=== PATIENT | female | born 1985 | race Hispanic/Latino ===

== ENCOUNTER 2022-11-18 10:29 | Emergency (ER) | payer OTHER, SELFPAY ==
--- NOTE | ~2022-11-18 | XR_ITS ---
EXAMINATION: XR chest 2V DATE: 11/18/2022 11:39 INDICATION: Chest pain. Shortness of breath. TECHNIQUE: Frontal and lateral views of the chest were obtained. COMPARISON: None. FINDINGS: The chest demonstrates clear lungs without pneumonia, pleural effusion, or pneumothorax. Th e heart size is normal. Breast implants are noted. IMPRESSION: 1. No acute cardiopulmonary disease. Reviewed, dictated and finalized at location A.
--- NOTE | 2022-11-18 10:49 | ECG_ITS ---
Measurements Intervals [place] Rate: 100 P: 84 DC: 150 QRS: 88 QRSD: 87 T: 14 QT: 321 QTc: 416 Interpretive Statements SINUS TACHYCARDIA NONSPECIFIC T-WAVE ABNORMALITY ABNORMAL ECG Electronically Signed On 11-18-2022 11:57:26 CDT by Henry Daniel M.D.
[2022-11-18 10:55] VITALS: BP 115/66; PULSE 101; RESP 17; TEMP 36.8; O2SAT 100
[2022-11-18 11:11] LABS: Basophils Percent Auto 0.3 % (0.2-1.2); Eosinophils Absolute Auto 0.1 K/mm3 (0-0.3); Eosinophils Percent Auto 1.5 % (0-4.4); Hematocrit 37.8 % (37.0-47.0); Hemoglobin 12.2 g/dL (12.0-15.0); Immature Granulocyte Absolute 0.05 K/mm3 (0.00-0.031); Immature Granulocyte Percent A 0.5 % (0-0.5); Lymphocytes Absolute Auto 1.21 K/mm3 (0.9-3.2); Lymphocytes Percent Auto 12.7 % (18.3-44.2); Mean Corpuscular HGB Conc 32.3 g/dl (32-36); Mean Corpuscular Hemoglobin 26.7 pg (26-34); Mean Corpuscular Volume 82.7 fl (80-100); Mean Platelet Volume 10.2 fl (7.4-10.4); Monocytes Percent Auto 10.1 % (2.6-8.5); Neutrophils Absolute Auto 7.2 K/mm3 (1.3-6.7); Neutrophils Percent Auto 74.9 % (45.5-73.1); Platelet Count Result 236 k/mm3 (150-375); Red Blood Count 4.57 M/mm3 (4.2-5.4); Red Cell Distribution Width 13.3 % (11.5-14.5); White Blood Count 9.6 K/mm3 (4.5-10.0)
[2022-11-18 11:20] LABS: INR 1.1; Prothrombin Time 13.7 Seconds (11.1-14.7)
[2022-11-18 11:29] LABS: Alanine Aminotransferase 25 U/L (6-35); Albumin Level 4.1 g/dL (3.5-5.1); Alkaline Phosphatase 68 U/L (38-126); Anion Gap 3 mmol/L (8-16); Aspartate Amino Transferase 25 U/L (14-36); Bilirubin,Total 0.6 mg/dL (0.2-1.3); Blood Urea Nitrogen 10 mg/dL (7-17); Calcium 8.8 mg/dL (8.4-10.2); Carbon Dioxide 32 mmol/L (22-30); Chloride 104 mmol/L (98-107); Estimated CRCL calculation 83 ml/min; Estimated Glomerular Filt Rate > 60; Glucose 99 mg/dL (65-110); Lipase 108 U/L (23-300); Potassium 3.5 mmol/L (3.4-5.0); Sodium 139 mmol/L (137-145)
[2022-11-18 11:40] LABS: Troponin I < 0.012 ng/mL (0.000-0.034)
[2022-11-18 11:47] LABS: Influenza A QL RT-PCR Negative (Negative); Influenza B QL RT-PCR Negative (Negative); SARS-CoV-2 RNA PCR Negative (Negative)
[2022-11-18] MEDS: KETOROLAC 30 MG/ML VIAL (*BKC) IV PUSH (12:12)
[2022-11-18] MEDS: IPRATROPIUM BR 0.02% INH SOLN 0.5 MG/2.5 ML VIAL INHALATION (12:12)
[2022-11-18] MEDS: LEVALBUTEROL NEB 1.25 MG/3 ML INHALATION (12:12)
[2022-11-18 12:15] VITALS: PULSE 105; RESP 21
[2022-11-18 12:17] VITALS: O2SAT 100
[2022-11-18 12:23] VITALS: PULSE 113; RESP 20
[2022-11-18 13:30] VITALS: BP 116/68; PULSE 102; RESP 20; O2SAT 99
--- NOTE | 2022-11-18 15:26 | ED.GENADULT ---
HPI - General Adult General Chief complaint: Upper Respiratory Infection Stated complaint: fast HR Time Seen by Provider: 11/18/22 11:27 History of Present Illness HPI narrative: Patient is a 37-year-old female who presents ER with cough. Ongoing over the last couple days. Has some sinus congestion. She is coughing up yellow sputum. No fevers or chills or sweats. Noticed that her heart rate was elevated today and became concerned because she has history of SVT. Additionally patient is breast-feeding. No chest pain or chest pressure. Related Data Allergies Allergy/AdvReac Type Severity Reaction Status Date / Time No Known Allergies Allergy Verified 11/18/22 12:05 Review of Systems Review of Systems: All systems reviewed & are unremarkable except as noted in HPI and below Constitutional: Constitutional: Denies chills, Denies fatigue and Denies fever(s) ENT: Denies nasal congestion and Denies sore throat Cardiovascular: Cardiovascular: Denies chest pain, Reports rapid heart rate and Denies radiating jaw, neck or arm pain Respiratory: Respiratory: Reports cough and Reports dyspnea Gastrointestinal: Gastrointestinal: Denies abdominal pain, Denies nausea and Denies vomiting PMFSH Past Medical History Medical History (Updated 11/18/22 @ 19:48 by Joesph Cooper MD) SVT (supraventricular tachycardia) Surgical History Surgical History (Updated 11/18/22 @ 15:37 by Joesph Cooper MD) No pertinent past surgical history Exam Narrative: GENERAL: Well-appearing, well-nourished, and in no acute distress. HEAD: Normocephalic, atraumatic. ENT: Mucous membranes moist. CHEST: Frequent coughing with expiratory wheezing. No respiratory distress. HEART: Tachycardic and regular. Normal peripheral pulses. EXTREMITIES: Normal range of motion. No edema. SKIN: Warm, dry, no rash. NEURO: Alert and oriented x3. PSYCH: Normal mood and affect. Course Course Emergency Course: Patient resting comfortably and feels improved with nebulizer treatment. Discharge home with prednisone and albuterol. Recommend follow-up with PCP. Vital Signs Vital signs: Vital Signs Temperature 98.3 F 11/18/22 10:55 Pulse Rate 101 H 11/18/22 10:55 Respiratory Rate 17 11/18/22 10:55 Blood Pressure 115/66 11/18/22 10:55 Pulse Oximetry 100 11/18/22 10:55 Oxygen Delivery Room Air 11/18/22 10:55 Temperature 98.3 F 11/18/22 10:55 Pulse Rate 99 11/18/22 15:46 Respiratory Rate 20 11/18/22 15:46 Blood Pressure 115/71 11/18/22 15:46 Pulse Oximetry 100 11/18/22 15:46 Oxygen Delivery Room Air 11/18/22 12:17 Medical Decision Making Vital Signs Vital Signs: Vital Signs Temperature 98.3 F 11/18/22 10:55 Pulse Rate 101 H 11/18/22 10:55 Respiratory Rate 17 11/18/22 10:55 Blood Pressure 115/66 11/18/22 10:55 Pulse Oximetry 100 11/18/22 10:55 Oxygen Delivery Room Air 11/18/22 10:55 Temperature 98.3 F 11/18/22 10:55 Pulse Rate 99 11/18/22 15:46 Respiratory Rate 20 11/18/22 15:46 Blood Pressure 115/71 11/18/22 15:46 Pulse Oximetry 11/18/22 15:46 Oxygen Delivery Room Air 11/18/22 12:17 Lab Data 11/18/22 11:00 11/18/22 11:00 Labs: Lab Results 11/18/22 11/18/22 11/18/22 Range/Units 11:00 11:00 11:00 WBC 9.6 (4.5-10.0) K/mm3 RBC 4.57 (4.2-5.4) M/mm3 Hgb 12.2 (12.0-15.0) g/dL Hct 37.8 (37.0-47.0) % MCV 82.7 (80-100) fl MCH 26.7 (26-34) pg MCHC 32.3 (32-36) g/dl RDW 13.3 (11.5-14.5) % Plt Count 236 (150-375) k/mm3 MPV 10.2 (7.4-10.4) fl Immature Gran % (Auto) 0.5 (0-0.5) % Neut % (Auto) 74.9 H (45.5-73.1) % Lymph % (Auto) 12.7 L (18.3-44.2) % [place] % (Auto) 10.1 H (2.6-8.5) % Eos % (Auto) 1.5 (0-4.4) % Baso % (Auto) 0.3 (0.2-1.2) % Lymph # (Auto) 1.21 (0.9-3.2) K/mm3 [place] # (Auto) 1.0 H (0.1-0.6) K/mm3 Eos # (Auto) 0.1 (0-
[2022-11-18 15:46] VITALS: BP 115/71; PULSE 99; RESP 20; O2SAT 100
== END 2022-11-18 15:49 | disposition home or self-care (01) ==
PROVIDERS: Emergency Provider Emergency Medicine
DX: J40 Bronchitis, not specified as acute or chronic (principal); R00.0 Tachycardia, unspecified; Z20.822 Contact with and (suspected) exposure to COVID-19
CPT/HCPCS: 36415; 71046; 80053; 83690; 84484; 85025; 85610; 85730; 87636; 93005; 94640; 96374; 99284; J1885

== ENCOUNTER 2025-04-05 14:17 | Emergency (ER) | payer OTHER, SELFPAY ==
--- NOTE | ~2025-04-05 | US_ITS ---
EXAMINATION: US OB <=14 wk fetus w TV DATE: 04/05/2025 17:19 INDICATION: 5 weeks gestation. Bleeding. Left lower quadrant pain. Rule out ectopic. TECHNIQUE: Real-time transabdominal and transvaginal obstetric ultrasound. FINDINGS: The uterus measures 10.0 x 5.2 x 4.4. No intrauterine gestational sac, with pole identified. No yolk sac identified. There is a 6 x 5 x 5 mm nabothian cyst in the cervix. Endometrial stripe measures 1.1 cm. Right ovary measures 2.6 x 2.1 x 1.9 cm. There is a 1.7 x 1.3 x 1.3 cm possible corpus luteum in the right ovary. Other etiologies are possible. Left ovary was not visualized due to posterior positioning. The study is slightly limited. IMPRESSION: 1. No intrauterine identified. Differential includes early intrauterine , missed or ectopic . Consider a short- term follow-up OB ultrasound in 3-5 days and serial beta-hCGs for further assessment. 2. There is a 1.7 x 1.3 x 1.3 cm possible corpus luteum in the right ovary. Other etiologies are possible. If there is focal pain in this location, an ectopic is possible. Correlate for point tenderness. 3. The left ovary was not visualized. Reviewed, dictated and finalized at location Q. IMPRESSION: 1. No intrauterine identified. Differential includes early intrauteri ne , missed or ectopic . Consider a short-term follo w-up OB ultrasound in 3-5 days and serial beta-hCGs for further assessment. 2. There is a 1.7 x 1.3 x 1.3 cm possible corpus luteum in the right ovary. Oth er etiologies are possible. If there is focal pain in this location, an ectopic is possible. Correlate for point tenderness. 3. The left ovary was not visualized.
[2025-04-05 14:24] VITALS: BP 137/70; PULSE 78; RESP 16; TEMP 36.8; O2SAT 98
[2025-04-05 15:11] LABS: Hematocrit 38.6 % (37.0-47.0); Hemoglobin 12.2 g/dL (12.0-15.0); Immature Granulocyte Percent A 0.3 % (0-0.5); Lymphocytes Absolute Auto 1.43 K/mm3 (0.9-3.2); Mean Corpuscular HGB Conc 31.6 g/dl (32-36); Mean Corpuscular Hemoglobin 26.8 pg (26-34); Mean Corpuscular Volume 84.6 fl (80-100); Nucleated Red Blood Cells Absolute Auto 0.000 K/mm3 (0.0-0.012); Nucleated Red Blood Cells Perc 0.0 % (0.0-0.2); Platelet Count Result 205 k/mm3 (150-375); Red Blood Count 4.56 M/mm3 (4.2-5.4); White Blood Count 4.0 K/mm3 (4.5-10.0)
[2025-04-05 15:18] LABS: Alanine Aminotransferase 14 U/L (6-35); Albumin Level 4.2 g/dL (3.5-5.1); Alkaline Phosphatase 60 U/L (38-126); Anion Gap 6 mmol/L (4-12); Aspartate Amino Transferase 25 U/L (14-36); Bilirubin,Total 0.3 mg/dL (0.2-1.3); Blood Urea Nitrogen 10 mg/dL (7-17); Calcium 9.3 mg/dL (8.4-10.2); Carbon Dioxide 28 mmol/L (22-30); Chloride 104 mmol/L (98-107); Estimated CRCL calculation 76 ml/min; Estimated Glomerular Filt Rate > 60; Glucose 117 mg/dL (65-110); Potassium 4.1 mmol/L (3.4-5.0); Sodium 138 mmol/L (137-145); Total Protein 7.5 g/dL (6.3-8.2)
[2025-04-05 15:26] LABS: INR 1.0; Prothrombin Time 12.9 Seconds (11.1-14.7)
[2025-04-05 15:27] LABS: Partial Thromboplastin Time 29.3 Seconds (22.3-36.8)
[2025-04-05 15:36] LABS: Beta HCG Quantitative 18.25 mIU/ML
--- NOTE | 2025-04-05 16:09 | ED_ITS ---
HPI - General Chief complaint: Vaginal Bleeding Stated complaint: vaginal bleeding-maybe 7 weeks Time Seen by Provider: 04/05/25 14:46 Source: patient Mode of arrival: ambulatory Limitations: no limitations History of Present Illness HPI Narrative: Patient is a 40-year-old female who presents the ED with report of vaginal bleeding. Patient reports her last normal menstrual cycle was around 03/02/2025. Typically has regular cycles. States she had a positive test last week. . States she has been having intermittent left-sided lower abdominal pain for the past 2 weeks, but developed back pain last night into today. Also reported having vaginal bleeding with clots today. Is concerned for miscarriage. Does not currently have an OBGYN. Related Data Allergies Allergy/AdvReac Type Severity Reaction Status Date / Time No Known Allergies Allergy Verified 04/05/25 14:27 Review of Systems 2 Review of Systems: All systems reviewed & are unremarkable except as noted in HPI. All systems reviewed & are unremarkable except as noted in HPI and below Exam 2 Narrative: GENERAL: Well appearing, thin, non-toxic, in no acute distress. HEAD: Normocephalic, atraumatic. RESPIRATORY: Airway patent, respirations nonlabored. Clear to auscultation bilaterally, no rales, rhonchi, wheezing. CARDIOVASCULAR: Regular rate and rhythm without murmurs, rubs, or gallops. ABDOMINAL: Soft, mild TTP in LLQ, no rebound, nondistended. Normoactive BS. MUSCULOSKELETAL: Moves all extremities. No gross deformities. SKIN: Warm, dry, normal color. NEURO: A&O X3. Speech clear. PSYCHIATRIC: Appropriate mood and affect. Normal interaction. Course Vital Signs Vital signs: Vital Signs Temperature 98.2 F 04/05/25 14:24 Pulse Rate 78 04/05/25 14:24 Respiratory Rate 16 04/05/25 14:24 Blood Pressure 137/70 04/05/25 14:24 Pulse Oximetry 98 04/05/25 14:24 Temperature 98.2 F 04/05/25 14:24 Pulse Rate 78 04/05/25 14:24 Respiratory Rate 16 04/05/25 14:24 Blood Pressure 137/70 04/05/25 14:24 Pulse Oximetry 98 04/05/25 14:24 MDM - OB/Uterine Contractions MDM Narrative Medical decision making narrative: Patient presented to ED with vaginal bleeding, left lower abdominal pain, lower back pain. Currently very early . . Vital signs are stable upon arrival. Patient is in no acute distress. Laboratory studies fairly unremarkable. Stable H&H. UA with evidence of blood, no signs of infection. Blood type is O-positive, no indication for RhoGAM. Beta hCG today is 18.25. Discussed this with patient and at bedside, likely very early gestational age. Ob ultrasound was obtained to rule out ectopic, does show a right corpus luteum cyst, but no abnormalities noted of left adnexal region where patient is having pain. Low suspicion for ectopic at this time. No intrauterine gestation identified. Discussed lab and imaging findings extensively with patient and at bedside. Discussed diagnosis of threatened miscarriage. Advised patient will need close follow-up and repeat laboratory testing in [address] lab order for repeat beta-hCG on to be obtained at outpatient lab. Discussed bleeding precautions, expectant management, strict return precautions. Patient to follow-up with OBGYN for further evaluation. Was referred to on-call OBGYN here. Patient in agreement with plan. Comfortable going home. Discharged in stable condition. Medical Records Attestation: I reviewed the patient's medical records. Lab Data Attestation: I reviewed the patient's lab results. 04/05/25 15:02 04/05/25 15:02 Labs: Lab Results 04/05/25 04/05/25 Range/Units 15:02 17:39 WBC 4.0 L (4.5-10.0) K/mm3 RBC 4.56 (4.2-5.4) M/mm3 Hgb 12.2 (12.0-15.0) g/dL Hct 38.6 (37.0-47.0) % MCV 84.6 (80-100) fl MCH 26.8 (26-34) pg MCHC 31.6 L (32-36) g/dl RDW 13.7 (11.5-14.5) % Plt Count 205 (150-375) k/mm3 MPV 10.9 H (7.4-10.4) fl Immature Gran % (Auto) 0.3 (0-0.5) % Neut % (Auto) 50.8 (45.5-73.1) % Lymph % (Auto) 35.8 (18.3-44.2) % Major % (Auto) 9.0 H (2.6-8.5) % Eos % (Auto) 3.3 (0-4.4) % Baso % (Auto) 0.8 (0.2-1.2) % Lymph # (Auto) 1.43 (0.9-3.2) K/mm3 Major # (Auto) 0.4 (0.1-0.6) K/mm3 Eos # (Auto) 0.1 (0-0.3) K/mm3 Baso # (Auto) 0.0 (0.0-0.1) K/mm3 Abs Immat Gran (auto) 0.01 (0.00-0.031) K/mm3 Absolute Neuts (auto) 2.0 (1.3-6.7) K/mm3 Absolute Nucleated RBC 0.000 (0.0-0.012) K/mm3 Nucleated RBC % 0.0 (0.0-0.2) % PT 12.9 (11.1-14.7) Seconds INR 1.0 APTT 29.3 (22.3-36.8) Seconds Sodium 138 (137-145) mmol/L Potassium 4.1 (3.4-5.0) mmol/L Chloride 104 (98-107) mmol/L Carbon Dioxide 28 (22-30) mmol/L Anion Gap 6 (4-12) mmol/L BUN 10 (7-17) mg/dL Creatinine 0.75 (0.7-1.0) mg/dL Estim Creat Clear Calc 76 ml/min Estimated GFR > 60 (59 - ) Glucose 117 H (65-110) mg/dL Calcium 9.3 (8.4-10.2) mg/dL Total Bilirubin 0.3 (0.2-1.3) mg/dL AST 25 (14-36) U/L ALT 14 (6-35) U/L Alkaline Phosphatase 60 (38-126) U/L Total Protein 7.5 (6.3-8.2) g/dL Albumin 4.2 (3.5-5.1) g/dL Beta HCG, Quant 18.25 mIU/ML Urine Color Pending Urine Appearance Pending Urine pH Pending Ur Specific [place] Pending Urine Protein Pending Urine Glucose (UA) Pending Urine Ketones Pending Ur Blood (Man) Pending Urine Nitrate Pending Urine Bilirubin Pending Urine Urobilinogen Pending Leukocyte Esterase Rfl Pending Blood Type O Positive Antibody Screen Negative Screen Not Reportable Baby's Blood Type Not Reportable Baby's MAYNOR Not Reportable Doses of RhIg Required 0 Imaging Data Attestation: I personally reviewed and interpreted this imaging study as follows: Radiologist's impression: ITS Impressions Obstetrics Ultrasound 04/05/25 17:22 IMPRESSION: 1. No intrauterine identified. Differential includes early intrauterine , missed or ectopic . Consider a short- term follow-up OB ultrasound in 3-5 days and serial beta-hCGs for further assessment. 2. There is a 1.7 x 1.3 x 1.3 cm possible corpus luteum in the right ovary. Other etiologies are possible. If there is focal pain in this location, an ectopic is possible. Correlate for point tenderness. 3. The left ovary was not visualized. Discharge Plan Discharge Clinical Impression: Threatened Patient Disposition: Home Condition: Stable Instructions: Antibiotic Form, Threatened Miscarriage (ED) Additional Instructions: Obtain repeat beta-hCG (blood hormone level) at outpatient lab on afternoon. Take lab order sheet with you. Follow up closely with your primary care doctor and/or OBGYN for further evaluation. Call office to make appointment. You may take Tylenol as needed for pain. Continue to monitor bleeding. Return to the ED if you experience you experience worsening or severe pain/bleeding (bleeding through pad in <1 hour for 3 hours), unable to keep down food or drink, severe dizziness or lightheadedness, passing out, fevers, or any other symptoms of concern. Patient Language: Urdu Other Ambulatory Orders: Beta HCG Quantitative (Routine) Timeframe: [id number] Location: Determined by Patient Ordered By: Earlene Velasquez Follow-up/Referrals: Shasta Humphreys MD [Physician, BEAUTY DIRECTOR] Referral Note: OBGYN PHYSICIAN,[facility] [employer] [Primary Care Provider, Internal Medicine] Time of Disposition: 17:52
--- NOTE | 2025-04-05 17:02 | PC.NURSE ---
Pt. in ultrasound. Will collect urine sample when pt. returns.
--- OUTSIDE RECORDS SUMMARY | 2025-04-05 17:40 | XMS_ITS | Clinical Summary ---
Author Organization [facility] Address [address] [place] [address] Care Team Providers Care Permanent Waver Name Role Phone Unavailable Primary Care Provider Unavailabl e Social History Tobacco Use Types Packs/Day Years Used Date Smoking Tobacco: Never Assessed Comments Unknown Sex and Gender Information Value Date Recorded Sex Assigned at Not on file Legal Sex Female 9:51 AM CDT Gender Identity Not on file Sexual Orientation Not on file Plan of Treatment Health Maintenance Due Date Last Done Comments DTAP/TDAP/TD VACCINES (1 - Tdap) 2005 HEPATITIS B VACCINES (1 of 3 - 19+ 3-dose series) 01/25 HPV/Cotest (21-29) 2007 HPV VACCINES (1 - 3-dose SCDM series) 2013 CERVICAL CANCER SCREENING 02/13/2016 HPV/Cotest (30-65) 02/13/2016 PAP SMEAR 02/13/2016 INFLUENZA VACCINE (#1) 2025 Insurance [address] [employer] [place] [place] [id number] [employer] [id number]
--- OUTSIDE RECORDS SUMMARY | 2025-04-05 17:40 | XMS_ITS | Clinical Summary ---
Author Organization [facility] Address [address] [place] [address] Care Team Providers Care Case Assistant Name Role Phone Wendi Draper MD Primary Care Provider [phone] Allergies No known active allergies Medications ibuprofen (ADVIL,MOTRIN) 600 mg tablet Take 1 tablet (600 mg total) by mouth every 6 (six) hours as needed for pain (pain) for up to 30 doses 30 tablet 2 2 Active Additional Information Patient not taking.Reported on 05/22/2023 polyethylene glycol (GoLYTELY) 236-22.74-6.74 -5.86 gram solution Please follow instructions mailed to you from our office for your colonoscopy prep 4000 mL 3 Active Tri-Sprintec, 28, 0.18/0.215/0.25 mg-35 mcg (28) per tablet Take 1 tablet by mouth daily 3 Active metoclopramide (REGLAN) 10 mg tablet Take 1 tablet (10 mg total) by mouth 4 (four) times a day as needed (nausea) Take with meals and at bedtime 30 tablet 1 3 Active UNABLE TO FIND Sepia - anxiety Active UNABLE TO FIND Neuroinjeel - anxiety Active fluticasone propion-salmete roL (ADVAIR DISKUS) 250-50 mcg/dose diskus inhaler Inhale 1 puff 2 (two) times a day Rinse mouth with water after use to reduce aftertaste and incidence of candidiasis. Do not swallow. 30 each 11 4 Active levalbuterol (XOPENEX HFA) 45 mcg/actuation inhaler Inhale 1-2 puffs every 6 (six) hours as needed for wheezing or shortness of breath 1 each 3 4 Active venlafaxine XR (EFFEXOR-XR) 37.5 mg 24 hr capsule Take 1 capsule (37.5 mg total) by mouth daily 30 capsule 11 4 06/21/20 Active levothyroxine (SYNTHROID) 75 mcg tablet Take 1 tablet (75 mcg total) by mouth electrical continuity tester before breakfast 30 tablet 11 4 07/23/20 Active Active Problems Problem Noted Date Diagnosed Date Recurrent major depressive disorder, in partial remission 06/21/2024 Menorrhagia with irregular cycle 06/21/2024 Acquired hypothyroidism 06/21/2024 Chronic fatigue 06/21/2024 Diarrhea 05/16/2023 Nausea and vomiting 05/16/2023 Abdominal pain 05/16/2023 Post term over 40 weeks 08/16/2021 Encounters Date Type Department Care Team Description 04/05/2025 Orders Only [facility] [address] [address] Wendi Draper MD Amenorrhea (Primary Dx) 04/05/2025 Telephone [facility] [address] [address] Wendi Draper MD 03/04/2025 Telephone [facility] [address] [address] Wendi Draper MD from Last 3 Months Immunizations Immunization Administration Dates Next Due [employer]) SARS-CoV-2 Vaccination 11/14/2020 Surgical History Surgery Date Site/Laterality Comments IA BREAST AUGMENTATION WITH IMPLANT Medical History Medical History Date Comments Migraines Anxiety Social History Tobacco Use Types Packs/Day Years Used Date Smoking Tobacco: Former Vaping Smokeless Tobacco: Former Tobacco Cessation:Counseling Given: Not Answered [place] Depression Scale Answer Date Recorded [place] Depression Scale Total 9 08/18/2021 The thought of harming myself has occurred to me . Never 08/18/2021 Comments Unknown Sex and Gender Information Value Date Recorded Sex Assigned at Not on file Legal Sex Female 3:27 PM CLIENT SUPPORT ANALYST Gender Identity Not on file Sexual Orientation Not on file Obstetrics History Para Term AB IAB SAB Ectopic Multiple Livin g Live Births 1 1 1 0 1 1 Date Outcome GA Total Labor Labor/2nd/3rd Weight Sex Type Anes PTL Sabina A1 A5 Name Clin 2021 Term 41w 0d 6h 20m 5h 10m/1h 07m/0h 03m 3.695 kg (8 lb 2.3 oz) F Vag-F orcep s Epidur al N Livin g 4 8 ZELAYA AGUILA,G FRANC genao, Ralph Sarkar MD Complications:None Delivery Location:[facility] ([facility] Last Filed Vital Signs Vital Sign Reading Time Taken Comments Blood Pressure 89/60 06/21/2024 10:47 AM CLIENT SUPPORT ANALYST Pulse 86 04/06/2024 1:11 PM CDT Temperature 36.9 C (98.4 F) 04/06/2024 1:11 PM CDT Respiratory Rate 20 08/18/2021 9:45 AM CLIENT SUPPORT ANALYST Oxygen Saturation 99% 04/06/2024 1:11 PM CDT Inhaled Oxygen Concentration - - Weight 51.3 kg (113 lb) 06/21/2024 10:47 AM CLIENT SUPPORT ANALYST Height 165.1 cm (5' 5) 04/06/2024 1:11 PM CDT Body Mass Index 18.8 04/06/2024 1:11 PM CDT Plan of Treatment Health Maintenance Due Date Last Done Comments Cervical Cancer Screening 1986 Hepatitis C Screening 1986 Varicella Vaccines (1 of 2 - 13+ 2-dose series) 1999 Hepatitis B Screening 02/13/2004 Regular Well Visit/Exam 18-64 02/13/2004 Pneumococcal vaccine <65 (1 of 2 - PCV) 2005 HPV Vaccines (1 - 3-dose SCDM series) 2013 Depression Screening 08/18/2022 08/18/2021 Covid-19 Vaccine (3 - season) 03/28/202505/2022, 11/14/2020 Influenza Vaccine (#1) 2025 DTaP/Tdap/Td Vaccine (2 - Td or Tdap) 04/10/2031 Insurance [address] [place] [place] [id number] [facility] CHO[facility] PLUS [address] [place] [address] [facility] CHOICE PLUS [facility] CHOICE PLUS Advance Directives For more information, please contact: [phone] * Full Code (Latest Code Status on File) Date Activated Date Inactivated Comments 08/16/2021 7:28 PM 08/18/2021 9:20 PM * Full Code Date Activated Date Inactivated Comments 08/16/2021 8:58 AM 08/16/2021 7:28 PM Full CPR in case of cardiopulmonary arrest Care Teams Case Assistant Relationship Specialty Start Date End Date Wendi Draper MD PCP - General Internal Medicine 08/07/21
--- OUTSIDE RECORDS SUMMARY | 2025-04-05 17:40 | XMS_ITS | Encounter Summary ---
Author Organization [facility] Address [address] [place] [address] Phone Care Team Providers Care Retail Branch Manager Name Role Phone Wendi Draper MD Primary Care Provider [phone] Encounter Details Date Type Department Care Team (Late st Contact Info) Description 04/05/2025 Telephone [facility] [address] [place] [address] [place] [address] [place] [address] Social History Tobacco Use Types Packs/Day Years Used Date Smoking Tobacco: Former Vaping Smokeless Tobacco: Former [place] Depression Scale Answer Date Recorded [place] Depression Scale Total 9 08/18/2021 The thought of harming myself has occurred to me . Never 08/18/2021 Comments Unknown Sex and Gender Information Value Date Recorded Sex Assigned at Not on file Legal Sex Female 3:27 PM US MARKETING DIRECTOR Gender Identity Not on file Sexual Orientation Not on file documented as of this encounter Miscellaneous Notes * Telephone Encounter - Deonna Brothers - 04/05/2025 12:54 PM CDT Wants to know if she can come get a blood test to see if she is . Her ob did blood and is testing for hormones but she doesn't want to wait 10 days. Wants to know if she's and why she is bleeding or if it's a miscarriage. documented in this encounter Plan of Treatment Not on file documented as of this encounter Visit Diagnoses Not on filedocumented in this encounter Care Teams Retail Branch Manager Relationship Specialty Start Date End Date Wendi Draper MD PCP - General Internal Medicine 08/07/21 documented as of this encounter
--- OUTSIDE RECORDS SUMMARY | 2025-04-05 17:40 | XMS_ITS | Encounter Summary ---
Author Organization [facility] Address [address] [place] [address] Phone Care Team Providers Care Mill Platform Supervisor Name Role Phone Wendi Draper MD Primary Care Provider [phone] Encounter Details Date Type Department Care Team (Late st Contact Info) Description 04/05/2025 Orders Only [facility] [address] [place] [address] [place] [address] [place] [address] Amenorrhea (Primary Dx) Social History Tobacco Use Types Packs/Day Years Used Date Smoking Tobacco: Former Vaping Smokeless Tobacco: Former [place] Depression Scale Answer Date Recorded [place] Depression Scale Total 9 08/18/2021 The thought of harming myself has occurred to me . Never 08/18/2021 Comments Unknown Sex and Gender Information Value Date Recorded Sex Assigned at Not on file Legal Sex Female 3:27 PM CARBIDER Gender Identity Not on file Sexual Orientation Not on file documented as of this encounter Plan of Treatment Scheduled Orders Name Type Priority Associated Diagnoses Orde r Schedule hCG, blood, quantitative Lab Routine Amenorrhea Expected: 04/05/2025, Expires: 04/05/2026 documented as of this encounter Visit Diagnoses Diagnosis Amenorrhea- Primary Absence of menstruation documented in this encounter Care Teams Mill Platform Supervisor Relationship Specialty Start Date End Date Wendi Draper MD PCP - General Internal Medicine 08/07/21 documented as of this encounter
[2025-04-05 17:58] LABS: Add Urine Microscopic? YES; Appearance Urine Clear (Clear); Glucose Urine UA Negative (Negative); Leukocyte Esterase Ur Negative LEU/UL (Negative); Nitrate Urine Negative (Negative); Non Pathogenic Casts 0-2; Specific Grav Ur 1.006 (1.001-1.035)
--- NOTE | 2025-04-05 18:05 | PC.NURSE ---
MARK Henao to bedside to answer additional pt. questions.
[2025-04-05 18:17] VITALS: BP 118/72; PULSE 85; RESP 16; O2SAT 99
== END 2025-04-05 18:21 | disposition home or self-care (01) ==
LOC: ANHED 17:39
PROVIDERS: Emergency Medicine; Emergency Provider Physician Assistant
DX: O20.0 Threatened abortion (principal); O09.521 Supervision of elderly multigravida, first trimester; R93.89 Abnormal findings on diagnostic imaging of other specified body structures; Z3A.01 Less than 8 weeks gestation of pregnancy
CPT/HCPCS: 36415; 76801; 76817; 80053; 81001; 84702; 85025; 85461; 85610; 85730; 86850; 86900; 86901; 99284

== ENCOUNTER 2025-04-07 17:47 | Outpatient (CLI) | payer OTHER, SELFPAY ==
--- OUTSIDE RECORDS SUMMARY | 2025-04-07 17:50 | XMS_ITS | Clinical Summary ---
Author Organization [facility] Address [address] [place] [address] Care Team Providers Care Lead Oracle Developer Name Role Phone Unavailable Primary Care Provider Unavailabl e Source Comments [facility],non-owned Affiliates and Associated Physician Practices is amultiple site organization consisting of ambulatory clinics and hospital sitesin [place], [place], [place] and [place]. This disclosure is being madepursuant to the Care Everywhere program and may not contain all information available regarding this patient. Last updated 18.[facility] [employer] Social History Tobacco Use Types Packs/Day Years Used Date Smoking Tobacco: Never Assessed Comments Unknown Sex and Gender Information Value Date Recorded Sex Assigned at Not on file Legal Sex Female 8:19 AM CDT Gender Identity Not on file Sexual Orientation Not on file Plan of Treatment Health Maintenance Due Date Last Done Comments HIV SCREENING 2001 HEPATITIS C SCREENING 02/08/2004 DTAP/TDAP/TD VACCINES (1 - Tdap) 2005 HEPATITIS B VACCINE (1 of 3 - 19+ 3-dose series) 2005 PAP SMEAR 2007 HPV VACCINE (1 - 3-dose SCDM series) 2013 COVID-19 VACCINE (2 - 2023-2 5 season) 2024 11/14/2020 DEPRESSION SCREENING 07/28/2024 INFLUENZA VACCINE (#1) 2025 ZOSTER VACCINE (1 of 2) 02/13/2036 HIB VACCINE Aged Out No longer eligi ble based on patient's age to complete this topic MENINGOCOCCAL (Group B) VACC INE SHARED DECISION-MAKING Aged Out No longer eligibl e based on patient's age to complete this topic MENINGOCOCCAL GROUPS A/C/Y/W VACCINE Aged Out No longer eligible b ased on patient's age to complete this topic PNEUMOCOCCAL VACCINE Aged Out No long er eligible based on patient's age to complete this topic Insurance [address] [place] [address] [employer]
--- OUTSIDE RECORDS SUMMARY | 2025-04-07 17:50 | XMS_ITS | Encounter Summary ---
Author Organization [facility] Address [address] [place] [address] Phone Care Team Providers Care Manager Mobility Name Role Phone Wendi Draper MD Primary Care Provider [phone] Encounter Details Date Type Department Care Team (Late st Contact Info) Description 04/05/2025 Telephone [facility] [address] [place] [address] [place] [address] [place] [address] Social History Tobacco Use Types Packs/Day Years Used Date Smoking Tobacco: Former Vaping Smokeless Tobacco: Former Deane Depression Scale Answer Date Recorded Deane Depression Scale Total 9 08/18/2021 The thought of harming myself has occurred to me . 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 She will be followed with repeat HCG through them. She is resting and feeling better. * Telephone Encounter - Wendi Draper MD - 04/06/2025 1:36 PM CDT Discussed that with previously positive urine HCG followed by negative urine HCG and active bleeding with LMP 5 weeks ago that she is likely not . She had a full evaluation by her OB yesterday. I am happy to oreder a serum BHCG and will do so at [facility]. * Telephone Encounter - Deonna Brothers - [...] on filedocumented in this encounter Care Teams Manager Mobility Relationship Specialty Start Date End Date Wendi Draper MD PCP - General Internal Medicine 08/07/21 documented as of this encounter
--- OUTSIDE RECORDS SUMMARY | 2025-04-07 17:50 | XMS_ITS | Clinical Summary ---
Author Organization [facility] Address [address] [place] [address] Care Team Providers Care Window And Door Installer Name Role Phone Unavailable Primary Care Provider [...] 02/13/2016 INFLUENZA VACCINE (#1) 2025 Insurance [address] [employer] [place] [place] [id number] [place] [id number]
--- OUTSIDE RECORDS SUMMARY | 2025-04-07 17:50 | XMS_ITS | Clinical Summary ---
Author Organization [facility] Address [address] [place] [address] Care Team Providers Care Hop Weigher Name Role Phone Wendi Draper MD Primary Care Provider [phone] Allergies No known active allergies Medications ibuprofen [...] 1 tablet (75 mcg total) by mouth director and professor before breakfast 30 tablet 11 4 07/23/20 Active Active Problems Problem Noted Date Diagnosed Date Recurrent major depressive disorder, in partial remission 06/21/2024 Menorrhagia with irregular cycle 06/21/2024 Acquired hypothyroidism 06/21/2024 Chronic fatigue 06/21/2024 Diarrhea 05/16/2023 Nausea and vomiting 05/16/2023 Abdominal pain 05/16/2023 Post term over 40 weeks 08/16/2021 Encounters Date Type Department Care Team Description 04/05/2025 Orders Only [facility] [address] [address] Wendi Draper MD Amenorrhea (Primary Dx) 04/05/2025 Telephone [facility] [address] [address] Wendi Draper MD 03/04/2025 Telephone [facility] [address] [address] Wendi Draper MD from Last 3 Months Immunizations Immunization Administration Dates Next Due [employer] SARS-CoV-2 Vaccination 11/14/2020 Surgical History Surgery Date Site/Laterality Comments MI BREAST AUGMENTATION WITH IMPLANT Medical History Medical History Date Comments Migraines Anxiety Social History Tobacco Use Types Packs/Day Years Used Date Smoking Tobacco: Former Vaping Smokeless Tobacco: Former Tobacco Cessation:Counseling Given: Not Answered [place] Depression Scale Answer Date Recorded [place] Depression Scale Total 9 08/18/2021 The thought of harming myself has occurred to me . Never 08/18/2021 Comments Unknown Sex and Gender Information Value Date Recorded Sex Assigned at Not on file Legal Sex Female 3:27 PM MANAGER GLOBAL COMMUNICATIONS Gender Identity Not on file Sexual Orientation [...] genao, Ralph Sarkar MD Complications:None Delivery Location:This [facility] Last Filed Vital Signs Vital Sign Reading Time Taken Comments Blood Pressure 89/60 06/21/2024 10:47 AM MANAGER GLOBAL COMMUNICATIONS Pulse 86 04/06/2024 1:11 PM CDT Temperature 36.9 C (98.4 F) 04/06/2024 1:11 PM CDT Respiratory Rate 20 08/18/2021 9:45 AM MANAGER GLOBAL COMMUNICATIONS Oxygen Saturation 99% 04/06/2024 1:11 PM CDT Inhaled Oxygen Concentration - - Weight 51.3 kg (113 lb) 06/21/2024 10:47 AM MANAGER GLOBAL COMMUNICATIONS Height 165.1 cm (5' 5) 04/06/2024 1:11 [...] [address] [place] [address] [facility] [address] [place] [address] [facility] Advance Directives For more information, please contact: [phone] * Full Code (Latest Code Status on File) Date Activated Date Inactivated Comments 08/16/2021 7:28 PM 08/18/2021 9:20 PM * Full Code Date Activated Date Inactivated Comments 08/16/2021 8:58 AM 08/16/2021 7:28 PM Full CPR in case of cardiopulmonary arrest Care Teams Hop Weigher Relationship Specialty Start Date End Date Wendi Draper MD PCP - General Internal Medicine 08/07/21
[2025-04-07 18:34] LABS: Beta HCG Quantitative 5.09 mIU/ML
[2025-04-07 18:48] LABS: Thyroid Stimulating Hormone 2.660 uIU/mL (0.465-4.680)
== END 2025-04-07 17:48 | disposition home or self-care (01) ==
LOC: ANHLAB 17:48
PROVIDERS: PCP Student in an Organized Health Care Education/Training Program; Visit Provider Student in an Organized Health Care Education/Training Program
DX: N92.1 Excessive and frequent menstruation with irregular cycle (principal)
CPT/HCPCS: 36415; 82166; 84146; 84443; 84702